=== PATIENT | male | born 1970 | race Two or more races ===

== ENCOUNTER 2018-09-04 09:32 | Emergency (ER) | payer SELFPAY ==
[~2018-09-04] VITALS: Ht 180.3 cm; Wt 90.7 kg
[2018-09-04] MEDS ORDERED: HYDROcodone/APAP 5/325MG 1 TAB TABLET PO ONE (10:15)
[2018-09-04] MEDS ORDERED: predniSONE 10 MG TABLET PO ONE (10:15)
--- NOTE | 2018-09-04 10:50 | RAD ---
LUMBAR SPINE 2-3V Clinical Indication: LOWER BACK PAIN X 5 DAYS
NO KNOWN INJURY Comparison: None. Findings: The vertebral body height and alignment are maintained. There is minimal degenerative endplate spurring in the lower lumbar spine. There is mild disc space narrowing of L5/S1. The other disc spaces are maintained. The mineralization is normal. Visualized pelvic bones intact. Soft tissues unremarkable. IMPRESSION: No acute fracture or malalignment of the lumbar spine. Electronically signed by: Darryl Ko MD (09/04/2018 10:47 AM) [id number]
--- NOTE | 2018-09-04 10:56 | PHYS DOC ---
Past Medical History Past Medical History: No Pertinent History Past Surgical History: No Surgical History Additional Information: 0.25 PPD Alcohol Use: Occasionally Drug Use: None Adult General Chief Complaint Chief Complaint: FEVER HPI HPI Patient is a 48 year old now presents to ED complaining of back pain 3 days ago. 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 Complains of pain to right lower back. Describes pain as sharp. Rates the pain as 7 out of 10. States he has not taken anything for the pain. Denies bowel/bladder changes, saddle anesthesia, radiating pain, nausea/vomiting, abdominal pain, chest pain, shortness of breath or fever. Review of Systems Review of Systems Constitutional: Denies fever or chills [] Eyes: Denies change in visual acuity, redness, or eye pain [] HENT: Denies nasal congestion or sore throat [] Respiratory: Denies cough or shortness of breath [] Cardiovascular: No additional information not addressed in HPI [] GI: Denies abdominal pain, nausea, vomiting, bloody stools or diarrhea [] : Denies dysuria or hematuria [] Musculoskeletal: Complains of back pain. Denies joint pain [] Integument: Denies rash or skin lesions [] Neurologic: Denies headache, focal weakness or sensory changes [] All other systems were reviewed and found to be within normal limits, except as documented in this note. Current Medications Current Medications Current Medications Medications (Trade) Dose Ordered Sig/Devin Start Time Stop Time Status Last Admin Dose Admin Acetaminophen/ Hydrocodone Bitart (Lortab 5/325) 1 tab 1X ONCE 09/04/18 10:15 09/04/18 10:16 DC 09/04/18 10:23 1 TAB Prednisone (Prednisone) 50 mg 1X ONCE 09/04/18 10:15 09/04/18 10:16 DC 09/04/18 10:23 50 MG Allergies Allergies Allergies Coded Allergies Type Severity Reaction Last Updated Verified No Known Drug Allergies 09/04/18 No Physical Exam Physical Exam Constitutional: Well developed, well nourished, no acute distress, non-toxic appearance. [] HENT: Normocephalic, atraumatic Eyes: PERRLA, EOMI, conjunctiva normal, no discharge. [] Neck: Normal range of motion, no tenderness, supple, no stridor. [] Cardiovascular:Heart rate regular rhythm, no murmur [] Lungs & Thorax: Bilateral breath sounds clear to auscultation [] Abdomen: Bowel sounds normal, soft, no tenderness, no masses, no pulsatile masses. [] Skin: Warm, dry, no erythema, no rash. [] Back: mild lumbar paraspinal tenderness, Decreased ROM with flexion. No overlying skin changes. NV intact. Patient able to ambulate without assistance. no CVA tenderness. [] Extremities: No tenderness, no cyanosis, no clubbing, ROM intact, no edema. [] Neurologic: Alert and oriented X 3, normal motor function, normal sensory fu nction, no focal deficits noted. DTR's intact.[] Psychologic: Affect normal, judgement normal, mood normal. [] Current Patient Data Vital Signs Vital Signs Date Time Temp Pulse Resp B/P (MAP) Pulse Ox O2 Delivery O2 Flow Rate FiO2 09/04/18 11:21 94 16 130/89 (103) 97 Room Air 09/04/18 09:53 99.0 99.0 EKG EKG [] Radiology/Procedures Radiology/Procedures []PROCEDURE: LUMBAR SPINE 2-3V LUMBAR SPINE 2-3V Clinical Indication: LOWER BACK PAIN X 5 DAYS
NO KNOWN INJURY Comparison: None. Findings: The vertebral body height and alignment are maintained. There is minimal degenerative endplate spurring in the lower lumbar spine. There is mild disc space narrowing of L5/S1. The other disc spaces are maintained. The mineralization is normal. Visualized pelvic bones intact. Soft tissues unremarkable. IMPRESSION: No acute fracture or malalignment of the lumbar spine. Course & Med Decision Making Course & Med Decision Making Pertinent Labs and Imaging studies reviewed. (See chart for details) []Discussed imaging findings with patient. Patient's pain improved in the ED. States he is feeling much better. Patient able to ambulate without assistance. No focal neural deficits. Will treat with analgesics and prednisone outpatient. Discussed follow-up with orthopedics this week if pain persists. Provided contact information/education. Discussed reasons to return to the ED. Patient understands and agrees with plan. Dragon Disclaimer Dragon Disclaimer This electronic medical record was generated, in whole or in part, using a voice recognition dictation system. Departure Departure Impression: Primary Impression: Back pain Additional Impression: Muscle strain Disposition: HOME, SELF-CARE Condition: IMPROVED Referrals: NO PCP (PCP) SCAR MONET II, MD Patient Instructions: Back Pain in , Muscle Strain Scripts Prednisone (PREDNISONE) 50 Mg Tablet 1 TAB PO DAILY for 5 Days, #5 TAB Prov: LUIS RAI 09/04/18 Hydrocodone/Apap 5-325 (NORCO 5-325 TABLET) 1 Each Tablet 1 TAB PO BID for 4 Days, #8 TAB Prov: LUIS RAI 09/04/18 Problem Qualifiers LUIS RAI Sep 04, 2018 10:56
[2018-09-04] MEDS ORDERED: HYDR-3164 PO (11:07)
[2018-09-04] MEDS ORDERED: PRED50TA PO (11:07)
[2018-09-04 11:21] VITALS: BP 130/89
== END 2018-09-04 11:21 | disposition home or self-care (01) ==
LOC: ER 09:32
DX: S39.012A Strain of muscle, fascia and tendon of lower back, initial encounter (principal); F17.200 Nicotine dependence, unspecified, uncomplicated; X50.9XXA Other and unspecified overexertion or strenuous movements or postures, initial encounter; Y93.89 Activity, other specified; Y92.89 Other specified places as the place of occurrence of the external cause; Y99.0 Civilian activity done for income or pay
CPT/HCPCS: 72100; 99284; J7512